=== PATIENT | male | born 1960 | race Caucasian/White ===

== ENCOUNTER 2017-01-10 14:00 | Inpatient (IN) ==
[2017-01-10 16:25] LABS: Appearance,Urine CLEAR; Bilirubin,Urine NEG (NEG); Color,Urine STRAW; Glucose,Urine (UA) NEGATIVE (NEG); Leukocyte Esterase,Urine NEG /uL (NEG); Nitrate,Urine NEG (NEG); Protein,Urine NEG (NEG); Specific Gravity,Urine 1.006 (1.000-1.035); Urine Blood NEG mg/dL (<0.03); Urobilinogen,Urine NEG (NEG)
[2017-01-10 17:22] LABS: Blood Urea Nitrogen 12 mg/dl (6-20)
[2017-01-10 17:23] LABS: Basophils # (Auto) 0.1 K/mcL (0.0-0.3); Basophils % (Auto) 0.7 % (0.0-2.0); Eosinophils # (Auto) 0.4 K/mcL (0.0-0.7); Eosinophils % (Auto) 4.5 % (0.0-7.0); Granulocytes % (Auto) 60.4 % (38.0-78.0); Lymphocytes # (Auto) 2.1 K/mcL (1.5-4.8); Lymphocytes % (Auto) 25.8 % (15.5-49.0); Mean Cell Volume 89.8 fL (80.0-100.0); Mean Corpuscular HGB Conc 33.7 g/dL (31.0-36.0); Mean Corpuscular Hemoglobin 30.3 pg (26.0-34.0); Monocytes # (Auto) 0.7 K/mcL (0.1-0.9); Monocytes % (Auto) 8.6 % (1.0-12.0); Platelet Count 258 K/mcL (140-440); RBC 5.14 M/mcL (4.50-5.90); Red Cell Distribution Width 12.6 % (11.5-14.5)
[2017-01-15] MEDS ORDERED: SCOPOLAMINE 1 PATCH PATCH TOPICAL PRN
[2017-01-15] MEDS ORDERED: CELECOXIB 200 MG CAPSULE PO SCH (05:00)
[2017-01-15] MEDS ORDERED: ACETAMINOPHEN 500 MG TABLET PO SCH (05:00)
[2017-01-15] MEDS ORDERED: ceFAZolin 1 GM VIAL IV SCH ×2 (05:00→10:45)
[2017-01-15] MEDS ORDERED: oxyCODONE 10 MG TAB.ER.12H PO SCH (05:00)
[2017-01-15] MEDS ORDERED: PREGABALIN 75 MG CAPSULE PO SCH (05:00)
[2017-01-15] MEDS ORDERED: KETOROLAC 30 MG, ROPIVACAINE HCL/PF 49.5 ML, EPINEPHrine 0.5 MG, 0.9 % SODIUM CHLORIDE ... IJ SCH (06:30)
[2017-01-15] MEDS ORDERED: WATER IV SCH (06:45)
[2017-01-15] MEDS ORDERED: DEXTROSE 5% IV SCH (06:45)
[2017-01-15] MEDS ORDERED: CLINDAMYCIN IV SCH (06:45)
[2017-01-15] MEDS ORDERED: MIDAZOLAM 5 MG/5 ML VIAL IV ONE (09:10)
[2017-01-15] MEDS ORDERED: BUPIVACAINE PF 0.5% 30 ML VIAL IJ ONE (09:10)
[2017-01-15] MEDS ORDERED: LIDOCAINE HCL/PF 100 MG/5 ML SYRINGE IV ONE (09:10)
[2017-01-15] MEDS ORDERED: ONDANSETRON 4 MG/2 ML VIAL IV ONE (09:10)
[2017-01-15] MEDS ORDERED: GLYCOPYRROLATE 0.2 MG/ML VIAL IV ONE (09:10)
[2017-01-15] MEDS ORDERED: PROPOFOL 200 MG/20 ML VIAL IV ONE (09:10)
[2017-01-15] MEDS ORDERED: KETAMINE 100 MG/ML ML IV ONE (09:10)
[2017-01-15] MEDS ORDERED: EPINEPHrine 1 MG/ML AMPUL IJ ONE (09:10)
[2017-01-15] MEDS ORDERED: TRANEXAMIC ACID 1,000 MG/10 ML VIAL IV ONE ×2 (09:10→10:41)
[2017-01-15] MEDS ORDERED: GENTAMICIN SULFATE 800 MG/20 ML VIAL IR ONE (09:40)
[2017-01-15] MEDS: KETOROLAC 30 MG, ROPIVACAINE HCL/PF 49.5 ML, EPINEPHrine 0.5 MG, 0.9 % SODIUM CHLORIDE ... IJ SCH (10:17)
[2017-01-15] MEDS ORDERED: BISACODYL 10 MG SUPP.RECT PR PRN (10:41)
[2017-01-15] MEDS ORDERED: ACETAMINOPHEN 325 MG TABLET PO PRN (10:41)
[2017-01-15] MEDS ORDERED: HYDROcodone/APAP 10/325MG TABLET PO PRN (10:41)
[2017-01-15] MEDS ORDERED: POLYETHYLENE GLYCOL 3350 17 GM PACKET PO PRN (10:41)
[2017-01-15] MEDS ORDERED: BENZOCAINE/MENTHOL 1 LOZENGE PO PRN (10:41)
[2017-01-15] MEDS ORDERED: MAGNESIUM HYDROXIDE 30 ML ORAL.SUSP PO PRN (10:41)
[2017-01-15] MEDS ORDERED: FLEETS ADULT ENEMA PR PRN (10:41)
[2017-01-15] MEDS ORDERED: ONDANSETRON 4 MG/2 ML VIAL IV PRN ×2 (10:41→10:54)
[2017-01-15] MEDS ORDERED: TEMAZEPAM 15 MG CAPSULE PO PRN (10:41)
[2017-01-15] MEDS ORDERED: MEPERIDINE 25 MG/ML SYRINGE IV PRN (10:54)
[2017-01-15] MEDS ORDERED: IPRATROPIUM/ALBUTEROL 3 ML AMPUL.NEB NEB PRN ×2 (10:54)
[2017-01-15] MEDS ORDERED: PROMETHAZINE 25 MG/ML VIAL IV PRN (10:54)
[2017-01-15] MEDS ORDERED: METHOCARBAMOL 1,000 MG/10 ML VIAL IV PRN (10:54)
[2017-01-15] MEDS ORDERED: fentaNYL 100 MCG/2 ML VIAL IV PRN (10:54)
[2017-01-15] MEDS ORDERED: LACTATED RINGERS 1,000 ML IV SCH (11:00)
[2017-01-15] MEDS: KETOROLAC 15 MG/ML VIAL IV SCH ×2 (11:15→17:02)
--- NOTE | 2017-01-15 12:02 | Operative Note ---
DATE OF OPERATION: 01/15/2017 PREOPERATIVE DIAGNOSIS: Right knee severe degenerative arthritis of the medial and patellofemoral joint. POSTOPERATIVE DIAGNOSIS: Right knee severe degenerative arthritis of the medial and patellofemoral joint. PROCEDURE: Right total knee arthroplasty using the AYDEE robot. SURGEON: Wan Green MD MINES INSPECTOR: Ron Esparza PA-C MANAGER CLIENT: Dr. Ayers. ANESTHESIA: General LMA anesthesia. COMPLICATIONS: None. TOTAL TOURNIQUET TIME: Approximately 45 minutes. IMPLANTS: Size 5 femur and size 5 tibial baseplate with an 11 mm poly insert. DESCRIPTION OF PROCEDURE: The patient was brought to the operating room and put to sleep with general LMA anesthesia. Once asleep, the patient had the right leg sterilely prepped and draped in the usual sterile fashion. Once a timeout had been performed and preop antibiotics and tranexamic acid been given we confirmed the operative side by x-rays consent form and initials. Once this was all confirmed, we then placed Ioban over the skin and made a midline incision, a mid vastus approach on the right knee. Once done, we exposed the joint showing severe arthritis in the medial compartment and of the patellofemoral joint. Once this was done, we then placed two pins above and below the knee, registered the center of hip rotation and registered the medial and lateral malleoli and registered 30 points on the femur and the tibia, registered the intra-articular pins and the robot was brought in and registered. We made our distal femoral cut, posterior and chamfer cuts were made. Once done, we then changed the saw blade and made our posterior cut, anterior cut and anterior chamfer cut. Once these were made the bony pieces were removed. We then brought the robot in and registered on the tibial side and then made the tibial cut. Once this was done, we then removed the bony fragment and preserved the posterior crucial ligament and removed the remnants of the meniscus and spurs posteriorly were removed. We irrigated thoroughly. We then trialed the components. We punched into place setting the rotation of the tibial base plate using the robot. Once punched into place for rotation and the femoral component was trialled and lateralized as far as we could we then placed an 11 mm poly insert. The extension was perfect, the same as prior to surgery which was a flexion contracture of about 4 degrees. Once done, we then prepared the patella. The patella measured a total thickness of 22.5 mm. This was cut to 14 mm and a 38 mm patellar button was placed. This seemed to fit very nicely. A small chamfer cut was made laterally. We then cemented into place the above-mentioned sizes keeping the knee bent at 45 degrees and removed excess cement once cement had dried. Once this was done, we then irrigated thoroughly, deflated the tourniquet at 45 minutes and controlled bleeding with the Bovie, closed the vastus approach, mid vastus approach with #1 Stratafix x2 sutures, multiple stitches which was a running stitch. We then irrigated thoroughly and closed the skin with 2-0 Vicryl and adhesive closure. The patient tolerated this well without complication. RBH:clarita Job ID: [id number] Doc ID: [id number] Wan Green MD
--- NOTE | 2017-01-15 12:05 | XRay Report ---
CLINICAL INFORMATION: Postop total knee prostheses COMPARISON: None. FINDINGS: Total knee prostheses is anatomically aligned. No osseous abnormality. Soft tissue swelling seen IMPRESSION: Negative Interpreted and Authenticated by: Remi Dickson 01/15/17
[2017-01-15] MEDS: HYDROmorphone 2 MG/ML SYRINGE IV PRN ×2 (12:50→18:05)
[2017-01-15] MEDS: 0.45 % SODIUM CHLORIDE 1,000 ML IV SCH ×3 (13:30→22:59)
[2017-01-15] MEDS: 0.9 % SODIUM CHLORIDE 10 ML SYRINGE IV SCH ×2 (14:18→21:45)
[2017-01-15] MEDS: CLINDAMYCIN 900 MG in 0.9 % SODIUM CHLORIDE 50 ML IV SCH ×2 (14:18→21:44)
[2017-01-15] MEDS ORDERED: diphenhydrAMINE 25 MG CAPSULE PO PRN ×2 (18:28→18:32)
--- NOTE | 2017-01-15 19:33 | Brief Operative Note ---
Date of procedure: 01/15/17 Pre-op diagnosis: right knee djd severe Post-op diagnosis: same Procedure: right tka with mingo robot Grafts/Implants: Yes Anesthesia: GETA Findings: djd Complications: none Surgeon: Wan Green Belt Splicer: Ron Esparza Estimated blood loss (cc): 55 Tourniquet Time (Minutes): 50 Specimens Removed/Pathology: none sent Condition: stable Disposition: PACU
[2017-01-15] MEDS ORDERED: PANTOPRAZOLE 40 MG TABLET PO SCH (21:00)
[2017-01-15] MEDS ORDERED: AMITRIPTYLINE 10 MG TABLET PO SCH (21:00)
[2017-01-15] MEDS ORDERED: SENNOSIDES 1 TABLET PO SCH (21:00)
[2017-01-15] MEDS ORDERED: ESOMEPRAZOLE MAGNESIUM 20 MG PO SCH (21:00)
[2017-01-15] MEDS: ASPIRIN 325 MG ENTERIC COATED TABLET PO SCH (21:42)
[2017-01-15] MEDS: DOCUSATE SODIUM 100 MG CAPSULE PO SCH (21:42)
[2017-01-15] MEDS: diphenhydrAMINE 25 MG CAPSULE PO PRN (21:43)
[2017-01-15] MEDS: oxyCODONE/APAP 5/325MG TABLET PO PRN (21:44)
[2017-01-16] MEDS: KETOROLAC 15 MG/ML VIAL IV SCH ×3 (01:16→11:43)
[2017-01-16] MEDS: oxyCODONE/APAP 5/325MG TABLET PO PRN ×3 (01:30→11:43)
[2017-01-16] MEDS: diphenhydrAMINE 25 MG CAPSULE PO PRN (01:30)
[2017-01-16] MEDS: CLINDAMYCIN 900 MG in 0.9 % SODIUM CHLORIDE 50 ML IV SCH (05:41)
[2017-01-16] MEDS: 0.9 % SODIUM CHLORIDE 10 ML SYRINGE IV SCH (05:42)
[2017-01-16] MEDS: 0.45 % SODIUM CHLORIDE 1,000 ML IV SCH (06:37)
--- NOTE | 2017-01-16 07:40 | Operative Note ---
DATE OF OPERATION: 01/15/2017 PREOPERATIVE DIAGNOSIS: Right knee degenerative arthritis, severe at least patellofemoral and medial compartment. POSTOPERATIVE DIAGNOSIS: Right knee degenerative arthritis, severe at least patellofemoral and medial compartment. PROCEDURE: Right total knee arthroplasty using AYDEE robot. SURGEON: Wan Green MD TOBACCO CLASSER: Ron Esparza PA-C ANESTHESIA: General LMA anesthesia. COMPLICATIONS: None. TOURNIQUET TIME: 50 minutes. IMPLANTS: Brennon components which were cemented, Triathlon total knee arthroplasty. DESCRIPTION OF PROCEDURE: The patient was brought to the operating room. Once timeout had been performed, we confirmed the operative site be the right side by initials, x-rays and a consent form. We proceeded with the total knee arthroplasty. We exsanguinated the leg and inflated the tourniquet to 250 pounds of pressure. A midline incision was made. We placed two pins above and below the knee and centered the hip rotation with the arrays. We registered the intra-articular pins, the medial and lateral malleolus, 30 registered points on the femur and tibia. We balanced the knee and then brought the robot in and made the cuts as planned. The robot was very accurate. There were no complications with this portion of the case. We then trialed the components. The patella was resurfaced because it had severe arthritis. There was bone exposed. This was resurfaced with a 38 patellar component which was cemented. These components were all cemented. These were Brennon triathlon total knee components with an 11 mm poly. The patient tolerated this well with full range of motion achieved. The knee was perfectly balanced at the end of the case. We irrigated thoroughly and closed the mid vastus approach after deflating the tourniquet. Two #1 Stratafix sutures were used to close the medial capsular incision, 2-0 Vicryl and adhesive closure was used on the skin. The patient tolerated this well. Tourniquet time was approximately 50 minutes. RBH:clarita Job ID: [id number] Doc ID: [id number] Wan Green MD
--- NOTE | 2017-01-16 07:40 | Orthopedic Progress Note ---
Subjective Patient information: Note initiated : 01/16/17 at 7:40 am Service Date, if different from initiated Date: [] Patient: Cm Benson 56 y/o M admitted on 01/15/17 for Arthroplasty Knee Total - Right Rene. Chief Complaint: [Pt is stable this morning on post operative day 1 without any significant concerns or complaints. Patients vital signs have remained stable. Patients dressing is dry and exhibits a grossly intact neurovascular and neuromotor exam. Patients 10 point ROS is otherwise negative. ] Objective Vital signs: Vital Signs Temp Pulse Pulse Resp BP Pulse Ox 01/16/17 07:34 96 01/16/17 03:58 97.9 F 67 18 124/74 97 01/16/17 03:00 97 01/16/17 02:10 72 16 93 01/16/17 02:07 16 89 L 01/16/17 01:46 93 01/16/17 00:00 97.4 F 66 18 119/71 92 01/15/17 23:00 92 01/15/17 20:00 98.1 F 63 18 118/68 92 01/15/17 19:00 92 01/15/17 16:11 97.7 F 16 110/72 95 01/15/17 15:00 95 01/15/17 14:30 106/71 94 01/15/17 13:30 104/71 95 01/15/17 13:00 108/74 94 01/15/17 12:30 142/80 97 01/15/17 12:15 128/80 98 01/15/17 12:00 125/76 97 01/15/17 11:45 96.3 F L 16 132/75 97 01/15/17 11:31 98.1 F 86 16 126/74 100 01/15/17 11:17 98.0 F 88 14 126/74 97 01/15/17 11:02 98.0 F 72 14 118/68 96 01/15/17 07:48 97.5 F 16 124/83 95 Intake and Output 01/15/17 01/16/17 01/16/17 21:59 05:59 13:59 Intake Total 1096 / 1096 2154 / 2154 360 / 360 Output Total 2200 / 2200 1325 / 1325 800 / 800 Balance -1104 / -1104 829 / 829 -440 / -440 Intake: IV 56 / 56 1004 / 1004 Sodium Chloride 0.45% 1,000 ml 948 / 948 @ 100 mls/hr IV .Q10H B[facility]BI Rx#: [id number] Cleocin 900 mg In Sodium 56 / 56 56 / 56 Chloride 0.9% 50 ml @ 100 mls/ hr IV Q8H [facility] Rx#:[id number] Oral 1040 / 1040 1150 / 1150 360 / 360 Output: Void Amount 2200 / 2200 1325 / 1325 800 / 800 Other: Meal Dinner Percent of Meal Consumed 100% Feeding Ability Independent Weight 230 lb Intake & Output: Intake & Output 01/15/17 01/16/17 01/16/17 21:59 05:59 13:59 Intake Total 1096 / 1096 2154 / 2154 360 / 360 Output Total 2200 / 2200 1325 / 1325 800 / 800 Balance -1104 / -1104 829 / 829 -440 / -440 Weight 230 lb Intake: IV 56 / 56 1004 / 1004 Sodium Chloride 0.45% 1,000 ml 948 / 948 @ 100 mls/hr IV .Q10H [facility] Rx#: [id number] Cleocin 900 mg In Sodium 56 / 56 56 / 56 Chloride 0.9% 50 ml @ 100 mls/ hr IV Q8H [facility] Rx#:[id number] Oral 1040 / 1040 1150 / 1150 360 / 360 Output: Void Amount 2200 / 2200 1325 / 1325 800 / 800 Other: Meal Dinner Percent of Meal Consumed 100% Feeding Ability Independent Incision: Yes healing Incision clean and dry: Yes Dressing: Yes clean, Yes dry Weight bearing status: full Neurological exam IM: Yes motor sensory intact, Yes neurovascular intact Extremities exam IM: Yes Foot pink and warm, Yes neurovascular intact - Labs CBC & BMP: 01/16/17 04:25 01/10/17 14:41 Labs: Orthopedic Labs 01/10/17 14:41 PT 13.0 INR 1.0 APTT 29 01/16/17 01/10/17 04:25 14:41 Hgb 15.6 Hct 38.7 L 46.2 Assessment and Plan (1) Hx of total knee arthroplasty The patient has been educated regarding dressing care, Physical Therapy recommendations, home exercises, restrictions, and follow up appointments. The patient has had all necessary DME prescribed. The patient has remained stable during their hospital course. The patient was discharge with a stable exam. Status: Acute
--- NOTE | 2017-01-16 07:43 | Discharge Summary ---
Ortho Discharge - TKA - Patient Instructions Diet: Regular Diet Activity: activity as tolerated, weight bearing as tolerated Total Knee Protocol: For Total Knee: Start ROM GEETHA with stationary bike or rocking chair. Work on gaining full extension of knee. Posterior dislocation precautions provided. Hip abductor strengthening and gait training instructions provided. Apply Cryocuff as instructed. Dressing Care: May shower in 2 days Patient Education: Total Knee Replacement (DC) Additional Instructions: CPM for home use - Problem Maintenance (1) Hx of total knee arthroplasty Status: Acute - Follow Up Plan Follow Up Appointments: Wan Green MD [Physician] - 01/30/17 8:10 am Disposition: Home, Self-Care Prognosis: Good Rehab Potential: Good I certify that the patient requires SNF services: No Overall status at discharge: patient is progressing back to baseline - Orders For Discharge Prescriptions: Aspirin [Ecotrin] 325 mg PO BID #60 tab.ec Docusate Sodium [Colace] 100 mg PO BID #60 cap oxyCODONE/APAP [Percocet 5-325 mg] 1 - 2 tab PO Q4HP PRN #75 tab PRN Reason: Pain Level 3-6
[2017-01-16] MEDS: DOCUSATE SODIUM 100 MG CAPSULE PO SCH (08:02)
[2017-01-16] MEDS: ASPIRIN 325 MG ENTERIC COATED TABLET PO SCH (08:02)
[2017-01-16] MEDS ORDERED: MAGNESIUM OXIDE 400 MG TABLET PO SCH (09:00)
[2017-01-16] MEDS ORDERED: MULTIVIT,THER IRON,CA,FA & MIN 1 TABLET PO SCH (09:00)
[2017-01-16] MEDS ORDERED: FISH OIL 1,000 MG CAPSULE PO SCH (09:00)
[2017-01-16] MEDS ORDERED: GLUCOSAMINE SULFATE DIPOT CHLR 1000 MG PO SCH (09:00)
[2017-01-16] MEDS ORDERED: VITAMIN D3 5,000 UNIT CAPSULE PO SCH (09:00)
[2017-01-16] MEDS ORDERED: ASPIRIN 81 MG TAB.CHEW PO SCH (09:00)
[2017-01-16] MEDS ORDERED: CYANOCOBALAMIN (VITAMIN B-12) 500 MCG TABLET PO SCH (09:00)
[2017-01-16] MEDS ORDERED: [UNRECOGNIZED DRUG - REMARK] PO SCH (09:00)
[2017-01-16] MEDS ORDERED: ASCORBIC ACID 500 MG TABLET PO SCH (09:00)
[2017-01-16] MEDS: KETOROLAC 30 MG, ROPIVACAINE HCL/PF 49.5 ML, EPINEPHrine 0.5 MG, 0.9 % SODIUM CHLORIDE ... IJ SCH (09:03)
== END 2017-01-16 15:00 | disposition home or self-care (01) | DRG 470 ==
LOC: MEDSUR 01-15 06:59
PROVIDERS: ADMIT Orthopaedic Surgery; ATTEND Orthopaedic Surgery